=== PATIENT | male | born 1955 | race African-American/Black ===

== ENCOUNTER 2018-05-25 11:57 | Emergency (ER) | payer MEDICAID ==
[~2018-05-25] VITALS: Ht 193 cm; Wt 122.5 kg
[2018-05-25 12:51] LABS: Urine WBC None Seen /hpf (0 - 3)
[2018-05-25 13:10] LABS: Urine Bacteria NONE SEEN /hpf (None Seen); Urine Blood Negative /uL (Negative); Urine Specific Gravity 1.005 (1.001-1.035)
[2018-05-25 14:02] LABS: Basophils # (auto) 0.1 uL; Eosinophils # (auto) 0.1 uL; Nucleated Red Blood Cells % 0.1 %; Platelet Count (auto) 236 10^3/uL (140-450); Red Cell Distribution Width 13.6 % (11.8-14.3)
[2018-05-25 14:03] LABS: Basophils % (auto) 0.6 % (0.0-2.0); Eosinophils % (auto) 1.2 % (0.0-7.0); Hematocrit 52.7 % (41.0-53.0); Lymphocytes # (auto) 2.1 uL; Lymphocytes % (auto) 20.7 % (10.0-50.0); Mean Corpuscular Hemoglobin 30.8 pg (28.0-32.0); Mean Corpuscular Hgb Conc. 34.1 g/dL (32.0-36.0); Mean Corpuscular Volume 90.4 fL (80.0-100.0); Monocytes # (auto) 1.2 uL; Monocytes % (auto) 11.6 % (0.0-12.0); Neutrophils # (auto) 6.7 uL; Neutrophils % (auto) 65.9 % (37.0-80.0); Red Blood Cells 5.83 10^6/uL (4.5-5.90); White Blood Cell 10.1 10^3/uL (4.4-10.8)
[2018-05-25 14:23] LABS: Alanine Aminotransferase 17 U/L (16-61); Albumin 3.3 g/dL (3.4-5.0); Amylase 105 U/L (25-115); Anion Gap 4 (5-15); Blood Urea Nitrogen 9 mg/dL (7-18); Calcium 8.7 mg/dL (8.5-10.1); Carbon Dioxide 28 mmol/L (21-32); Chloride 103 mmol/L (98-107); Glucose 97 mg/dL (74-106); Lipase 247 U/L (73-393); Magnesium 2.2 mg/dL (1.6-2.6); Potassium 4.1 mmol/L (3.5-5.1); Sodium 135 mmol/L (136-145)
[2018-05-25 14:29] LABS: Alkaline Phosphatase 91 U/L (45-117); Aspartate Aminotransferase 14 U/L (15-37); BUN/Creatinine Ratio 8.1; Bilirubin, Total 0.9 mg/dL (0.2-1.0); GFR African American 86 mL/min; GFR Non-African American 71 mL/min; Total Protein 7.9 g/dL (6.4-8.2)
[2018-05-25 17:31] VITALS: BP 164/93
== END 2018-05-25 17:42 | disposition home or self-care (01) ==
LOC: ER 12:00
DX: R10.84 Generalized abdominal pain (principal); R11.2 Nausea with vomiting, unspecified; E11.9 Type 2 diabetes mellitus without complications; F17.210 Nicotine dependence, cigarettes, uncomplicated
CPT/HCPCS: 36415; 71046; 74176; 80053; 81001; 82150; 83690; 83735; 84484; 85025; 93005